=== PATIENT | female | born 1995 | race Caucasian/White ===

== ENCOUNTER 2016-12-03 13:00 | Inpatient (IN) | payer OTHER ==
--- NOTE | ~2016-12-03 | HP ---
Unit #: [id number] #: [id number] Patient: BARBARA MONTANA [id number] [place] [address] [id number] MR#: [id number] NAME: BARBARA MONTANA ROOM: P212 Age: 21 Sex: F Admission Date: 12/04/2016 : 1995 Attending Physician: Marjorie Weber M.D. Admitting Physician: Marjorie Weber M.D. Primary Care Physician: Primary Care Physician No HISTORY AND PHYSICAL HISTORY OF PRESENT ILLNESS Barbara is a 21 year old admitted to [address] [place] [address] because of her drug use. She smokes meth. PAST MEDICAL HISTORY History of illicit substance abuse to include methamphetamine. PAST SURGICAL HISTORY 1. Cholecystectomy. 2. T and A. 3. D and C. ALLERGIES No known drug allergies. SOCIAL HISTORY Smokes one pack per day. Denies alcohol. Admits to a history of illicit substance abuse to include methamphetamine. FAMILY HISTORY Medically noncontributory. REVIEW OF SYSTEMS CONSTITUTIONAL: No fever or chills. HEENT: Denies any sore throat, ear pain or runny nose. CARDIOVASCULAR: Denies chest pain, irregular heart rhythm or palpitations. CHEST: Denies shortness of breath or cough. No hemoptysis. GASTROINTESTINAL: Denies nausea, vomiting, diarrhea or chronic constipation. ENDOCRINE: Denies history of increased thirst or urination. No recent significant weight loss or gain. GENITOURINARY: Denies dysuria, frequency, or hematuria. SKIN: Denies any rashes. HEMATOLOGIC: Denies history of increased bleeding or bruising. MUSCULOSKELETAL: Denies any hot, swollen joints. No generalized muscle pain. NEUROLOGIC: Denies problems with vision or speech. No frequent, severe headaches. No numbness, tingling or weakness in any extremities. Denies loss of bladder or bowel control. CURRENT MEDICATIONS 1. Haldol 5 mg b.i.d. 2. Wellbutrin XL 150 mg q.a.m. Unit #: [id number] #: [id number] Patient: BARBARA MONTANA 3. Milk of Magnesia p.r.n. 4. Maalox p.r.n. 5. Tylenol p.r.n. 6. Bactrim DS 1 p.o. b.i.d. PHYSICAL EXAMINATION GENERAL: Alert, well nourished. No apparent distress. VITAL SIGNS: Blood pressure 114/72, heart rate 80, respirations 16, and temperature 98.6. WEIGHT: 116. HEIGHT: 5 feet 2 inches. SKIN: Warm and dry without rash or lesion. HEENT: Normocephalic. TMs not viewed. Oral and nasal passages clear. Conjunctivae clear. PERRLA. EOMs intact. NECK: Supple without lymphadenopathy or thyromegaly. HEART: Regular rate and rhythm without murmur. LUNGS: Clear. ABDOMEN: Soft, nontender. : Not done. EXTREMITIES: No evidence of cyanosis, clubbing or edema. Moves all without focal deficit. NEUROLOGICAL: Grossly within normal limits. Cranial Nerves: II: Visual mcpherson are intact. III, IV AND : Extraocular movements are intact. Pupils are equal, round and reactive to light. V: Facial sensation is grossly normal. VII: Facial movements and expression are normal. VIII: Auditory acuity grossly intact. IX, X: Uvula is midline. Phonation is normal. XI: Patient shrugs shoulders and turns head normally. XII: Tongue protrudes in the midline. Sensory and Motor Function: Sensory and motor sensation is grossly normal. Motor: moves all extremities well. Coordination: Gait is normal. Deep Tendon Reflexes: Intact. IMPRESSION Psychiatric admission. RECOMMENDATIONS PSYCHIATRIC: Per psychiatrist. MEDICAL: I see no contraindication to participate in this facility's activities. MEDICAL PROGNOSIS Good. MEDICAL CONDITION Stable. Dictated by... Piedad Gómez P.A.-C. for Gypsy Floyd TD: 12/05/2016 11:57 JOB #: [id number] Unit #: [id number] #: [id number] Patient: BARBARA MONTANA HISTORY AND PHYSICAL Page 1 of 1 X Piedad Gómez HISTORY AND PHYSICAL
--- NOTE | ~2016-12-03 | PN ---
Unit #: [id number] #: [id number] Patient: POLO AMIN [id number] [facility] [address] [place] [address] [id number] I MR#: [id number] NAME: POLO AMIN ROOM: P212 Age: 21 Sex: F Admission Date: 12/04/2016 : 1995 Attending Physician: Marjorie Weber M.D. Admitting Physician: Marjorie Weber M.D. Primary Care Physician: Primary Care Physician Evelyn HARRIS NOTES DATE OF SERVICE 12/06/2016 DISCUSSION Mr. Amin is a 21-year-old white female who was seen today. Chart was reviewed and case was discussed with staff. She has been anxious, withdrawn, depressed, and rather seclusive to herself. Meanwhile, she has been cooperative with the treatment recommendations and has been taking the medications and tolerating them fairly well though has been exhibiting persistent depressive symptoms. MENTAL STATUS EXAMINATION Young white female who is casually dressed with fair personal hygiene, appears to be in no acute distress or discomfort. She was awake and alert on interaction with intact orientation. Her mood is anxious with congruent affect. She denies any suicidal or homicidal ideations. Her insight and judgment remain slightly impaired. TREATMENT PLAN 1. We will continue her on her current medications and treatment protocol. We will monitor her response to the medications and make further adjustments as needed. 2. We will continue to follow up. Dictated by... Gypsy Tan/bzg TD: 12/07/2016 08:17 JOB #: [id number] Unit #: [id number] #: [id number] Patient: POLO AMIN FRANCISCOMARIS PROGRESS NOTES Page 1 of 1 X Marjorie Weber MD PROGRESS NOTE
--- NOTE | ~2016-12-03 | PA ---
Unit #: [id number] #: [id number] Patient: POLO MONTANA [id number] [facility] [address] [place] [address] [id number] MR#: [id number] NAME: POLO MONTANA ROOM: P212 Age: 21 Sex: F Admission Date: 12/04/2016 : 1995 Date of Assessment: 12/04/2016 Attending Physician: Marjorie Weber M.D. Admitting Physician: Marjorie Weber M.D. Primary Care Physician: Primary Care Physician No PSYCHIATRIC ASSESSMENT IDENTIFYING DATA Ms. Montana is a 21-year-old single white female, who is a resident of [place], [place] and was self-referred to the hospital on voluntary basis. CHIEF COMPLAINT "I lost my kids, I am going to have a nervous breakdown." HISTORY OF PRESENT ILLNESS Ms. Montana is a 21-year-old white female, who was self-referred to the hospital. Upon presentation, stating that she has been going through a lot of stress and that she is about to have nervous break down and she has lost her kids and "I cannot stop using meth, I want to kill myself. I'm so useless and pathetic" and the patient reports increasing depression, anxiety, irritability, restlessness, feelings of hopelessness and helplessness, and suicidal ideations and as such, recommendation for inpatient level of care for safety and stabilization was made. The patient was transferred to us. SUBSTANCE ABUSE HISTORY The patient reports extensive history of substance abuse and dependence including alcohol, cannabis, cocaine, opioids, and methamphetamine, and currently she reports methamphetamine to be her drug of choice as she reports that she has been using a gram of methamphetamine a day on every day basis. PAST PSYCHIATRIC HISTORY The patient has a history of multiple and numerous inpatient psychiatric hospitalizations over the years including mostly as a teenager and adolescent at facilities like [facility], [facility], [facility] and has had inpatient hospitalization at [facility] as well. Review of the medical records indicate currently she is not active in any treatment program, is not seeing a psychiatrist, and is not taking any psychotropic medications. PAST MEDICAL HISTORY No acute or chronic medical illnesses. ALLERGIES No known medication allergies. CURRENT MEDICATIONS Unit #: [id number] #: [id number] Patient: POLO MONTANA None. PERSONAL AND SOCIAL HISTORY A 21-year-old white female, who reports that she is single, unemployed, and has been living with different friends and family members and does not have any stable housing of her own and she has lost the kids and has been on a lot of stress. MENTAL STATUS EXAMINATION Young white female, who was casually dressed with fair personal hygiene, appears to be in no acute distress or discomfort. She was awake and alert on interaction with intact orientation to time, place, and person. Her mood was anxious and depressed with a congruent affect. Her speech was slow and goal directed. She reports having suicidal ideations, but denies any homicidal ideations, and also denies any auditory or visual hallucinations. Her insight and judgment remain significantly impaired. DIAGNOSTIC IMPRESSION Psychiatric: Major depressive disorder, recurrent, moderate, without psychotic features; methamphetamine dependence, moderate; opioid dependence, moderate. Medical: None. Stressors: Moderate psychosocial stressors. TREATMENT PLAN 1. The patient has presented with history of mood disorder and substance abuse and has been decompensating and will need inpatient hospitalization for safety and stabilization. We will start her back on her home medications. We will adjust the medications and monitor response and make further adjustments as needed. 2. Supportive therapy was provided to the patient. ESTIMATED LENGTH OF STAY 5 to 7 days. ABILITY TO HELP SELF Limited. WILLINGNESS TO HELP SELF The patient appears to be willing to help self. STRENGTHS 1. Communicative. 2. Cooperative. PROBLEMS 1. Chronic dysphoric symptoms. 2. Chronic chemical dependency. 3. Poor social support system. DISCHARGE CRITERIA This will be contingent upon the patient's ability to show resolution of her depression and anxiety and her ability to stay safe to herself, particularly after discharge from the hospital. Dictated by... Marjorie Weber M.D. Unit #: [id number] #: [id number] Patient: POLO MONTANA IAA/modl TD: 12/04/2016 13:29 JOB #: [id number] PSYCHIATRIC ASSESSMENT Page 1 of 1 X Afaq,Marjorie Govea MD X PSYCHIATRIC ASSESSMENT
--- NOTE | ~2016-12-03 | DS ---
Unit #: [id number] #: [id number] [facility] [id number] [facility] [address] [place] [address] [id number] I MR#: [id number] NAME: POLO AMIN ROOM: [facility] Age: 21 Sex: F Admission Date: 12/04/2016 : 1995 Discharge Date: 12/08/2016 Attending Physician: Marjorie Weber M.D. Primary Care Physician: Primary Care Physician No DISCHARGE SUMMARY IDENTIFYING DATA Ms. Amin is a 21-year-old single white female, who is a resident of [place], [place] and was self-referred to the hospital on a voluntary basis. DISCHARGE DIAGNOSES Psychiatric: Major depressive disorder, recurrent, moderate, without psychotic features; methamphetamine dependence, moderate; opioid dependence, moderate. Medical: None. Stressors: Mild psychosocial stressors. HISTORY OF PRESENT ILLNESS Please see initial psychiatric evaluation for details. PAST PSYCHIATRIC HISTORY Please see initial psychiatric evaluation for details. PAST MEDICAL HISTORY Please see initial psychiatric evaluation for details. HOSPITAL COURSE The patient was admitted to the adult chemical dependency unit at [facility] and was oriented to the hospital environment. Routine p.r.n. medications were initiated, and she was started on Wellbutrin and initially was seen to be exhibiting some acute psychosis and Haldol was given; however, she had an acute dystonic reaction from Haldol and Cogentin, and Benadryl was given with complete resolution of the symptoms, but Haldol was then discontinued and she was seen to be doing much better and was calm and cooperative. No agitation, aggression, or acute psychosis was noticed. Wellbutrin was maintained as an antidepressant with good tolerability and therapeutic response. Followed by which, it was decided that she will be discharged home and will continue treatment on an outpatient basis. DISCHARGE MEDICATIONS Wellbutrin XL 150 mg in the morning for depression. DISCHARGE CONDITION Stable. PROGNOSIS Fair. Unit #: [id number] #: [id number] Patient: POLO AMIN Dictated by... Gypsy Tan/lilianl TD: 12/08/2016 07:08 JOB #: [id number] DISCHARGE SUMMARY Page 1 of 1 X Marjorie Weber MD DISCHARGE SUMMARY
--- NOTE | ~2016-12-03 | PN ---
Unit #: [id number] #: [id number] Patient: POLO AMIN [id number] [facility] [address] [place] [address] [id number] I MR#: [id number] NAME: POLO AMIN ROOM: P212 Age: 21 Sex: F Admission Date: 12/04/2016 : 1995 Attending Physician: Marjorie Weber M.D. Admitting Physician: Marjorie Weber M.D. Primary Care Physician: Primary Care Physician Evelyn HARRIS NOTES DATE 12/05/2016 DISCUSSION Ms. Amin is a 21-year-old white female with substance abuse and mood disorder who was seen today and chart was reviewed and case was discussed with the staff. She was seen to be anxious, withdrawn and seclusive to herself and appears to be in distress and discomfort. Meanwhile, she has been cooperative with treatment recommendations as she has been taking the medications and tolerating them fairly well with no reported side effects. MENTAL STATUS EXAMINATION Young white female who was casually dressed with fair personal hygiene, appears to be in no acute distress or discomfort. She was awake and alert with impaired attention and concentration. Her mood was anxious with a congruent affect. She denies any suicidal or homicidal ideations. Her insight and judgement remains slightly impaired. TREATMENT PLAN We will continue her on her current treatment protocol. We will monitor her response to the medication and make further adjustments as needed. Dictated by... Gypsy Tan/deb TD: 12/06/2016 04:25 JOB #: [id number] NERY HARRIS NOTES Page 1 of 1 X Marjorie Weber MD X PROGRESS NOTE
--- NOTE | ~2016-12-03 | PN ---
Unit #: [id number] #: [id number] Patient: POLO MONTANA [id number] [facility] [address] [place] [address] [id number] MR#: [id number] NAME: POLO MONTANA ROOM: P212 Age: 21 Sex: F Admission Date: 12/04/2016 : 1995 Attending Physician: Marjorie Weber M.D. Admitting Physician: Marjorie Weber M.D. Primary Care Physician: Primary Care Physician Evelyn HARRIS NOTES DATE OF SERVICE 12/07/2016 DISCUSSION Ms. Montana is a 21-year-old white female who was seen today. Chart was reviewed and case was discussed with the staff. She once again was lying in her bed and would not interact or socialize or carry on any conversation with me. I asked her if she has been going to therapy groups, and she stated that she is just laying around here in the bed and appears to be crashing quite a bit, coming off drugs, particularly Methamphetamine. She was also put on Haldol because of psychosis. However, she had some acute dystonic reactions yesterday, and Benadryl and Cogentin were given, and as such Haldol was discontinued. MENTAL STATUS EXAMINATION Young white female who is casually dressed with fair personal hygiene, appears to be in no acute distress or discomfort. She was awake and alert on interaction with intact orientation. Her mood is anxious with congruent affect. She denies any suicidal or homicidal ideations. Her insight and judgment remain slightly impaired. TREATMENT PLAN 1. We will continue her on her current medications and treatment protocol. We will monitor her response to the medications and make further adjustments as needed. 2. We will continue to follow up. Dictated by... Marjorie Weber M.D. IAA/bzg TD: 12/08/2016 07:28 JOB #: [id number] Unit #: [id number] #: [id number] Patient: POLO MONTANA PROGRESS NOTES Page 1 of 1 X Marjorie Weber MD X PROGRESS NOTE
== END 2016-12-08 11:25 | DRG 885 ==
LOC: P2S 12-04 04:11
DX: F33.1 Major depressive disorder, recurrent, moderate (principal); F11.20 Opioid dependence, uncomplicated; F15.20 Other stimulant dependence, uncomplicated; F17.210 Nicotine dependence, cigarettes, uncomplicated; Z90.49 Acquired absence of other specified parts of digestive tract
CPT/HCPCS: J1200

== ENCOUNTER 2016-12-03 20:11 | Emergency (ER) | payer OTHER ==
[2016-12-03 23:21] LABS: URINE SOURCE CLEAN CATCH
[2016-12-03 23:25] LABS: BASOPHIL# 0.1 X10e3 (0-0.3); BASOPHIL% 0.6 % (0-2.5); DIFF IND NO; EOSINOPHIL# 0.1 X10e3 (0-0.7); EOSINOPHIL% 0.7 % (0.0-7.0); HEMOGLOBIN 13.9 gm/dL (12.0-16.0); LYMPHOCYTE# 2.6 X10e3 (1.0-3.5); LYMPHOCYTE% 30.1 % (17.0-45.0); MEAN CELL VOLUME 80.2 FL (83-96); MEAN CORPUSCULAR HEMOGLOBIN 26.6 PG (28-34); MEAN CORPUSCULAR HGB CONC 33.2 g/dL (30-36); MEAN PLATELET VOLUME 8.2 FL (6.5-11.5); MONOCYTE# 0.6 X10e3 (0-1.0); NEUTROPHIL# 5.3 X10e3 (1.5-7.1); NEUTROPHIL% 61.6 % (40-75); PLATELET COUNT 364 X10e3 (140-420); RED BLOOD COUNT 5.24 X10e (3.90-5.30); RED CELL DISTRIBUTION WIDTH 15.7 % (11.0-15.5); WHITE BLOOD COUNT 8.6 X10e3 (4.0-10.5)
[2016-12-03 23:26] LABS: URINE APPEARANCE CLOUDY; URINE BILIRUBIN NEG (NEG); URINE BLOOD TRACE (NEG); URINE COLOR DK YELLOW; URINE GLUCOSE NEG (NEG); URINE KETONE TRACE (NEG); URINE LEUKOCYTE ESTERASE 2+ (NEG); URINE NITRATE NEG (NEG); URINE PH 5.5 (5-8); URINE PROTEIN 1+ (NEG); URINE SPECIFIC GRAVITY 1.034 (1.003-1.035)
[2016-12-03 23:28] LABS: CULTURE INDICATED? YES; URINE BACTERIA AUWI 4+ (NEGATIVE); URINE SQUAMOUS EPITHELIAL CELL MANY /[HPF]; UWBCS1 AUWI 100-200 (0-5)
[2016-12-03 23:37] LABS: URINE MUCUS PRESENT
[2016-12-03 23:47] LABS: ACETAMINOPHEN <10 ug/mL; ALBUMIN SERUM 4.7 g/dL (3.5-5.0); ALCOHOL BLOOD <5 mg/dL (0); ALKALINE PHOSPHATASE 83 U/L (32-92); ALT (SGPT) 14 U/L (10-40); AST (SGOT) 19 U/L (10-42); BILIRUBIN, DIRECT 0.1 mg/dL (0.0-0.2); BILIRUBIN,INDIRECT 0.6 mg/dL (0.0-0.9); BILIRUBIN,TOTAL 0.7 mg/dL (0.2-2.0); BLOOD UREA NITROGEN 16 mg/dL (9-23); BUN/CREATININE RATIO 22.85; CALCIUM SERUM 9.5 mg/dL (8.4-10.2); CARBON DIOXIDE 24 mmol/L (22-31); CHLORIDE 105 mmol/L (100-111); CREATININE SERUM 0.7 mg/dL (0.6-1.4); GLOM FILT RATE Estimated 122.1 mL/min (>60); GLUCOSE FASTING 89 mg/dL (70-110); POTASSIUM 3.7 mmol/L (3.5-5.1); PROTEIN TOTAL SERUM 8.2 g/dL (6.0-8.3); SALICYLATE <4.0 mg/dL; SODIUM 138 mmol/L (135-145)
[2016-12-03 23:48] LABS: AMPHETAMINE POS (NEG); BARBITURATES NEG (NEG); BENZODIAZEPINES NEG (NEG); COCAINE NEG (NEG); MARIJUANA NEG (NEG); OPIATES NEG (NEG); TRICYCLIC ANTIDEPRESSANTS NEG (NEG); U METHADONE NEG (NEG)
== END 2016-12-04 03:40 | disposition short-term general hospital (02) ==
LOC: CED 20:11 → CFTX 20:11 → CED 22:11 → CFTX 22:11
PROVIDERS: Emergency Medicine
DX: R45.851 Suicidal ideations (principal); F15.10 Other stimulant abuse, uncomplicated; N39.0 Urinary tract infection, site not specified; F90.9 Attention-deficit hyperactivity disorder, unspecified type; F31.9 Bipolar disorder, unspecified; F41.9 Anxiety disorder, unspecified; F17.210 Nicotine dependence, cigarettes, uncomplicated
CPT/HCPCS: 36415; 80048; 80076; 80307; 81003; 84703; 85025; 87086; 99285; G0480